=== PATIENT | male | born 1995 | race Caucasian/White ===

== ENCOUNTER 2018-11-11 21:54 | Emergency (ER) | payer SELFPAY ==
[2018-11-11] MEDS ORDERED: ONDANSETRON ODT 4 MG TAB ONE (22:42)
[2018-11-11] MEDS ORDERED: FAMOTIDINE 20MG TAB 20 MG TAB ONE (22:42)
[2018-11-11 23:03] LABS: BASOPHILS % (AUTO) 0.6 % (0.0-5.0); EOSINOPHILS % (AUTO) 1.2 % (0.0-8.0); HEMATOCRIT 39.7 % (42-54); LYMPHOCYTES % (AUTO) 14.2 % (21.0-51.0); MEAN CORPUSCULAR HEMOGLOBIN 20.2 pg (27.0-33.0); MEAN CORPUSCULAR HGB CONC 32.3 g/dL (32.0-36.0); MEAN CORPUSCULAR VOLUME 62.5 fL (80-100); MONOCYTES % (AUTO) 9.3 % (3.0-13.0); NEUTROPHILS % (AUTO) 74.7 % (40.0-77.0); PLATELET COUNT (AUTO) 229 K/uL (130-400); RED BLOOD CELL COUNT(AUTO) 6.35 MIL/uL (4.50-6.20); RED CELL DISTRIBUTION WIDTH 15.4 % (11.0-15.5); WHITE BLOOD COUNT (AUTO) 12.4 K/uL (4.8-10.8)
[2018-11-11 23:13] LABS: POTASSIUM 3.8 mmol/L (3.5-5.1)
[2018-11-11 23:14] LABS: APPEARANCE,URINE Clear (CLEAR); BILIRUBIN,URINE Negative (NEGATIVE); GLUCOSE, URINE (UA) Negative (NEGATIVE); KETONES,URINE Negative (NEGATIVE); LEUKOCYTE ESTERASE ,URINE Negative (NEGATIVE); NITRATE,URINE Negative (NEGATIVE); OCCULT BLOOD,URINE Negative (NEGATIVE); PH,URINE 6.5 (5.0-8.0); PROTEIN,URINE Trace mg/dL (NEGATIVE)
[2018-11-11 23:17] LABS: BILIRUBIN,DIRECT 0.1 mg/dL (0.0-0.3); BILIRUBIN,TOTAL 0.6 mg/dL (0.2-1.0); COLOR,URINE YELLOW (YELLOW); TOTAL PROTEIN, SERUM 7.7 g/dL (6.0-8.3)
== END 2018-11-12 | disposition home or self-care (01) ==
LOC: EDH 21:54
DX: A08.2 Adenoviral enteritis (principal)
CPT/HCPCS: 36415; 80048; 80076; 81003; 83690; 85025

== ENCOUNTER 2019-07-28 18:40 | Emergency (ER) | payer OTHER ==
[2019-07-28 20:28] LABS: RAPID GROUP A STREP NEGATIVE (NEGATIVE)
== END 2019-07-28 21:28 | disposition home or self-care (01) ==
LOC: EDH 18:40
DX: B34.9 Viral infection, unspecified (principal)
CPT/HCPCS: 87804; 87880